=== PATIENT | female | born 1990 | race Caucasian/White ===

== ENCOUNTER → 2017-02-07 | Outpatient (CLI) | payer BC ==
[2017-02-07 13:00] LABS: CH 30.4; CHCM 34.2; HDW 2.48; HGB 14.7 gm/dL (11.4-16.0); MCH 31.2 pg (25.0-35.0); MCHC 34.9 g/dL (31.0-37.0); MCV 89.2 fL (80.0-100.0); Mean Platelet Volume 7.2; RBC 4.71 m/uL (3.80-5.40); RDW 13.3 % (11.5-15.5); WBC 6.9 k/uL (3.8-10.6)
[2017-02-07 13:53] LABS: Glucose 71 mg/dL (74-99)
[2017-02-07 14:37] LABS: Hepatitis B Surface Ag Index 0.07
[2017-02-07 15:21] LABS: Non-African American GFR(MDRD) >60 (>60 ml/min/1.73 sqM)
[2017-02-07 19:20] LABS: Treponemal Ab Non-Reactive (Non-Reactive)
[2017-02-08 06:13] LABS: Toxoplasma Antibody (IgG) <3.0 IU/mL (<7.2)
== END | disposition home or self-care (01) ==
LOC: LABWHC1 12:29
PROVIDERS: ATTEND Obstetrics & Gynecology
DX: Z34.02 Encounter for supervision of normal first pregnancy, second trimester (principal); R53.83 Other fatigue
CPT/HCPCS: 36415; 82565; 82947; 85027; 86762; 86777; 86778; 86780; 86850; 86900; 86901; 87340; 87390

== ENCOUNTER → 2017-03-07 | Outpatient (CLI) | payer BC ==
[2017-03-08 09:11] LABS: Alpha Fetoprotein 28.6 ng/mL; Alpha Fetoprotein (M.O.M) 0.66; B-HCG (M.O.M.) 0.53; Gestational Age (days) 2; Human Chorionic Gonadotropin 11.6 IU/mL; Inhibin A (M.O.M.) 0.99; Interpretation SeeBelow; Maternal Age at EDD (Yrs) 27; Smoker No; Unconjugated Estriol (M.O.M.) 1.05
== END | disposition home or self-care (01) ==
LOC: LABWHC1 11:38
PROVIDERS: ATTEND Obstetrics & Gynecology
DX: Z34.02 Encounter for supervision of normal first pregnancy, second trimester (principal); Z3A.00 Weeks of gestation of pregnancy not specified
CPT/HCPCS: 36415; 82105; 82677; 84702; 86336

== ENCOUNTER 2017-08-13 06:00 | Inpatient (IN) | payer BC ==
--- NOTE | 2017-08-12 20:33 | P.HPOB ---
History of Present Illness H&P Date: 08/12/17 Chief Complaint: Induction of labor This is a 26-year-old female 1 para 0 with an estimated date of confinement of 08/06/2017, estimated gestational age of 41 weeks, who presents to labor and delivery for induction of labor secondary to postdates. She admits to good movement. She has been feeling irregular contractions. course is been uncomplicated. labs: GC/chlamydia-negative Toxoplasma-negative HIV-nonreactive Rubella-immune Syphilis antibody-negative Random glucose-71 Hepatitis B surface antigen-negative Hemoglobin-14.2 Blood type-A+ Antibody screen-negative Quad screen-negative Obstetrical ultrasound-normal anatomy echocardiogram-within normal limits One hour Glucola-101 Group B streptococcus-negative Obstetrical history: . Gynecologic history: No history of sexual transmitted diseases. Social history: She is . She works at [employer]. Review of Systems Constitutional: Denies chills, Denies fever Eyes: denies blurred vision, denies pain Ears, nose, mouth and throat: Denies headache, Denies sore throat Cardiovascular: Denies chest pain, Denies shortness of breath Respiratory: Denies cough Gastrointestinal: Reports abdominal pain (Irregular contractions) Genitourinary: Reports pelvic pain, Reports Musculoskeletal: Reports low back pain Integumentary: Denies pruritus, Denies rash Neurological: Denies numbness, Denies weakness Psychiatric: Denies anxiety, Denies depression Past Medical History Past Medical History: No Reported History Additional Past Surgical History / Comment(s): [place] teeth Past Anesthesia/Blood Transfusion Reactions: No Reported Reaction Past Psychological History: No Psychological Hx Reported Smoking Status: Never smoker Past Alcohol Use History: None Reported - Past Family History Father Family Medical History: Hypertension Medications and Allergies Home Medications Medication Instructions Recorded Confirmed Type Pnv,Calcium 72/Iron/Folic Acid 1 tab PO DAILY 08/12/17 08/12/17 History [ Plus Tablet] Allergies Allergy/AdvReac Type Severity Reaction Status Date / Time No Known Allergies Allergy Verified 08/12/17 20:32 Exam Osteopathic Statement: *. No significant issues noted on an osteopathic structural exam other than those noted in the History and Physical/Consult. HEENT: Within normal limits Heart: Regular rate and rhythm Lungs: Clear to auscultation bilaterally Abdomen: Cervix: 1-1/2 cm/70%/-2 heart tones: 140s by Doppler Extremities: Negative Homans Assessment and Plan (1) 41 weeks gestation of Status: Acute Code(s): Z3A.41 - 41 WEEKS GESTATION OF SNOMED Code( s): 28733422 Plan: Proceed with oxytocin induction of labor. Expectant management. Epidural anesthesia if desired.
[2017-08-13] MEDS ORDERED: LIDOCAINE 1% 20 ML VIAL (10MG/ML) FOR IV START INTRADERMA PRN (06:12)
[2017-08-13] MEDS ORDERED: OXYTOCIN 10 UNIT/ML 1 ML VIAL IM PRN (06:12)
[2017-08-13] MEDS ORDERED: TERBUTALINE 1 MG/ML VIAL SQ PRN (06:12)
[2017-08-13] MEDS ORDERED: METHYLERGONOVINE 0.2 MG/ML 1 ML AMP IM PRN (06:12)
[2017-08-13] MEDS ORDERED: LACTATED RINGERS 1,000 ML IV SCH (06:12)
[2017-08-13] MEDS ORDERED: LIDOCAINE 1% (PF) 10 MG/ML (30 ML SDV) SQ PRN (06:12)
[2017-08-13] MEDS ORDERED: CARBOPROST TROMETHAMINE 250 MCG/ML 1 ML AMP IM PRN (06:12)
[2017-08-13] MEDS ORDERED: OXYTOCIN 20 UNITS/1000 ML NS 1,000 ML IV SCH ×2 (06:12→12:59)
[2017-08-13 06:33] LABS: Basophils % (A) 0 %; Eosinophils # (A) 0.1 k/uL (0-0.7); Eosinophils % (A) 1 %; HCT 39.4 % (34.0-46.0); HGB 13.9 gm/dL (11.4-16.0); Lymphocytes # (A) 2.1 k/uL (1.0-4.8); Lymphocytes % (A) 25 %; MCH 31.6 pg (25.0-35.0); MCHC 35.2 g/dL (31.0-37.0); MCV 89.7 fL (80.0-100.0); Mean Platelet Volume 9.6; Monocytes # (A) 0.6 k/uL (0-1.0); Monocytes % (A) 7 %; Neutrophils # (A) 5.7 k/uL (1.3-7.7); Neutrophils % (A) 67 %; Platelet Count 185 k/uL (150-450); RDW 13.4 % (11.5-15.5); WBC 8.6 k/uL (3.8-10.6)
[2017-08-13 06:40] VITALS: BMI 29.2
[2017-08-13] MEDS ORDERED: BUTORPHANOL 1 MG/ML 1 ML VIAL IV PRN (09:34)
--- NOTE | 2017-08-13 12:52 | P.PROBDLV ---
Vaginal Delivery Note - . Vaginal Delivery Note: The patient progressed to complete dilation after oxytocin induction of labor and artificial rupture membranes with what appeared to be thin meconium fluid. She did receive 1 dose of Stadol. Once reaching complete dilation, she began pushing. Infant's head came to a crown. With one further push, the 's head delivered across the perineum in a left occiput anterior lie followed by the anterior shoulder. Nose and mouth were bulb suctioned. With one further push, the remainder of the infant easily delivered and was placed on mother's abdomen. Cord was clamped and cut and infant was evaluated by nursing staff. A viable male infant was noted with scores of 9 at 1 minute and 9 at 5 minutes and weight of 7 lbs. 0 oz. Placenta delivered shortly thereafter , intact, with a three-vessel cord. Uterus contracted fairly well after oxytocin was given and uterine massage was carried out. Inspection of the perineum revealed a second-degree perineal laceration and a right periurethral laceration. These areas were anesthetized with 1% lidocaine. The second- degree laceration was sutured with 3-0 and 2-0 Vicryl suture in the usual multilayer fashion. The right periurethral laceration was sutured with 3-0 Vicryl suture and a running locked fashion. Estimated blood loss was approximately 200 mL's. Both mother and are in stable condition.
[2017-08-13] MEDS ORDERED: ACETAMINOPHEN TAB 325 MG TAB PO PRN (12:59)
[2017-08-13] MEDS ORDERED: SIMETHICONE 80 MG CHEWABLE PO PRN (12:59)
[2017-08-13] MEDS ORDERED: ZOLPIDEM 5 MG TAB PO PRN (12:59)
[2017-08-13] MEDS ORDERED: diphenhydrAMINE 50 MG CAP PO PRN (12:59)
[2017-08-13] MEDS ORDERED: WITCH HAZEL 1 EACH MED..PAD TOPICAL PRN (12:59)
[2017-08-13] MEDS ORDERED: LANOLIN CREAM 5 GM TUBE TOPICAL PRN (12:59)
[2017-08-13] MEDS ORDERED: diphenhydrAMINE 25 MG CAP PO PRN (12:59)
[2017-08-13] MEDS ORDERED: diphenhydrAMINE 50 MG/ML 1 ML VIAL IVP PRN ×2 (12:59)
[2017-08-13] MEDS ORDERED: BENZOCAINE/MENTHOL SPRAY 1 GM/SPRAY AEROSOL TOPICAL PRN (12:59)
[2017-08-13] MEDS ORDERED: HYDROCORTISONE 2.5% RECTAL CREAM 30 GM TUBE RECTAL PRN (12:59)
[2017-08-13] MEDS: IBUPROFEN 600 MG TAB PO PRN ×2 (14:42→20:49)
[2017-08-13] MEDS: SENNOSIDES-DOCUSATE SODIUM 1 EACH TAB PO SCH (20:48)
[2017-08-14] MEDS: IBUPROFEN 600 MG TAB PO PRN ×2 (05:16→13:19)
[2017-08-14 08:18] LABS: Basophils % (A) 0 %; Eosinophils % (A) 0 %; HCT 38.6 % (34.0-46.0); HGB 12.8 gm/dL (11.4-16.0); Lymphocytes # (A) 1.6 k/uL (1.0-4.8); Lymphocytes % (A) 12 %; MCH 30.2 pg (25.0-35.0); MCHC 33.3 g/dL (31.0-37.0); MCV 90.7 fL (80.0-100.0); Mean Platelet Volume 9.1; Monocytes # (A) 0.6 k/uL (0-1.0); Monocytes % (A) 4 %; Neutrophils # (A) 11.6 k/uL (1.3-7.7); Neutrophils % (A) 83 %; Platelet Count 147 k/uL (150-450); RBC 4.25 m/uL (3.80-5.40); RDW 13.5 % (11.5-15.5); WBC 13.9 k/uL (3.8-10.6)
--- NOTE | 2017-08-14 08:52 | P.DS ---
Providers Date of admission: 08/13/17 06:00 Expected date of discharge: 08/14/17 Attending physician: Yasmine Yuen Primary care physician: Stated None - Discharge Diagnosis(es) (1) 41 weeks gestation of Current Visit: Yes Status: Acute Hospital Course: This is a 26-year-old female 1 para 0 at 41 weeks who presented for induction of labor. She underwent oxytocin induction of labor and delivered vaginally a viable male on 08/13/2017 with scores of 9 at 1 minute and 9 at 5 minutes and infant weight of 7 lbs. 0 oz. Her course has been unconjugated. She is breast-feeding. Lochia is decreasing. Pain is fairly well controlled with ibuprofen. Vital signs are stable. Abdomen is soft with fundus firm and nontender. Extremities show negative Homans. Impression is status post vaginal delivery day #1. Plan is to discharge home today. Routine instructions are given. She is advised to follow up in the office in 6 weeks for a check. She will be given a prescription for ibuprofen. She has a breast pump at home. She is advised to call the office if she has any further questions or concerns prior to her appointment time. Procedures: Oxytocin induction of labor Spontaneous vaginal delivery of a viable male infant on 08/13/2017 Patient Condition at Discharge: Stable Plan - Discharge Summary Discharge Rx Participant: No New Discharge Prescriptions: New Ibuprofen [Motrin] 600 mg PO Q6HR PRN #60 tab PRN Reason: Mild Pain Or Fever >= 100.5 Continue Pnv,Calcium 72/Iron/Folic Acid [ Plus Tablet] 1 tab PO DAILY Discharge Medication List Pnv,Calcium 72/Iron/Folic Acid [ Plus Tablet] 1 tab PO DAILY 08/12/17 [ History] Ibuprofen [Motrin] 600 mg PO Q6HR PRN #60 tab 08/14/17 [Rx] Follow up Appointment(s)/Referral(s): Yasmine Yuen DO [Doctor of Osteopathic Medicine] - 6 Weeks Activity/Diet/Wound Care/Special Instructions: Instructions 1. Do not begin any exercise program for 3 weeks. 2. Do not resume sexual relations for 3 weeks or longer if uncomfortable. 3. You may take tub baths or showers at any time. 4. You may use tampons if desired after 3 weeks. 5. Keep the area of episiotomy (stitches) clean and dry. 6. If you are not nursing, wear a good fitting, supportive bra during the day and limit fluid intake for at least 1 week to prevent breast engorgement. 7. Call the office, [phone], within the next week to make appointment for your 6 week checkup if it has not already been made. 8. Report any of the following occurrences to the doctor promptly: a. Heavy, excessive bleeding b. Chills, fever c. Burning or frequency of urination d. Pain or redness and breasts if nursing e. Increasing pain or swelling in episiotomy (stitches). In addition to the above instructions, the following additional should be followed: 1. No heavy lifting or straining (exercising) until after 6 week checkup. 2. Keep abdominal incision clean and dry: You may wear a dressing if more comfortable. 3. Make office appointment for 10 days after going home or as instructed by her doctor. Discharge Disposition: HOME SELF-CARE
[2017-08-14] MEDS: SENNOSIDES-DOCUSATE SODIUM 1 EACH TAB PO SCH (09:51)
[2017-08-14 10:15] VITALS: BP 123/78; PULSE 77; RESP 16; TEMP 97.8
== END 2017-08-14 13:45 | disposition home or self-care (01) | DRG 775 ==
LOC: 4FBP 06:00
PROVIDERS: ADMIT Obstetrics & Gynecology; ATTEND Obstetrics & Gynecology
PROC: 10907ZC Drainage of Amniotic Fluid, Therapeutic from Products of Conception, Via Natural or Artificial Opening (ICD-10-PCS; principal; 2017-08-13)
PROC: 0KQM0ZZ Repair Perineum Muscle, Open Approach (ICD-10-PCS; principal; 2017-08-13)
PROC: 10E0XZZ Delivery of Products of Conception, External Approach (ICD-10-PCS; principal; 2017-08-13)
PROC: 0UQMXZZ Repair Vulva, External Approach (ICD-10-PCS; principal; 2017-08-13)
PROC: 3E033VJ Introduction of Other Hormone into Peripheral Vein, Percutaneous Approach (ICD-10-PCS; principal; 2017-08-13)
DX: O48.0 Post-term pregnancy (principal); O70.1 Second degree perineal laceration during delivery; Z37.0 Single live birth; Z3A.41 41 weeks gestation of pregnancy; O71.82 Other specified trauma to perineum and vulva; O77.0 Labor and delivery complicated by meconium in amniotic fluid
CPT/HCPCS: 85025; 88307